=== PATIENT | male | born 1975 ===

== ENCOUNTER 2018-06-16 07:51 | Emergency (ER) | payer BC, OTHER ==
--- NOTE | 2018-06-16 08:28 | UC ---
Skin Complaint HPI - HPI Summary HPI Summary: 42 year old male with no PMH presents with deer tick bite x ~ 24 hours. no fever, chills. Attempted to remove, head remained. Body brought with paitent , not engorged. + deer tick. - History of Current Complaint Chief Complaint: [employer]kin Time Seen by Provider: 06/16/18 08:10 Stated Complaint: TICK Hx Obtained From: Patient Onset/Duration: Sudden Onset, Lasting Days, Still Present Onset Severity: Mild Current Severity: Mild Pain Intensity: 2 Pain Scale Used: 0-10 Numeric Location: Discrete - L upper inner thigh - Allergy/Home Medications Allergies/Adverse Reactions: Allergies Allergy/AdvReac Type Severity Reaction Status Date / Time environmental Allergy Congestion Uncoded 06/16/18 08:02 PMH/Surg Hx/FS Hx/Imm Hx Previously Healthy: Yes - Surgical History Surgical History: None - Social History Alcohol Use: Occasionally Substance Use Type: None Smoking Status (MU): Never Smoked Tobacco Review of Systems All Other Systems Reviewed And Are Negative: Yes Skin: Positive: Rash Is Patient Immunocompromised?: No Physical Exam Triage Information Reviewed: Yes Appearance: Well-Appearing, No Pain Distress, Well-Nourished Vital Signs: Initial Vital Signs Temp 98.6 F 06/16/18 07:59 Pulse 68 06/16/18 07:59 Resp 18 06/16/18 07:59 BP 146/94 06/16/18 07:59 Pulse Ox 98 06/16/18 07:59 Vital Signs Reviewed: Yes Eyes: Positive: Conjunctiva Clear Psychological Exam: Normal Skin: Positive: Other - left medial superior thigh with ~ 2cm red area with tick head, legs sticking out from side. minimal tender to touch. Attempted ot remove head, only partially able to be removed. Tolerated well by patient. Course/Dx - Course Course Of Treatment: Attempted tick removal, partially embedded. warm compresses, continue to monitor area, if increased redness, abx. No lyme prophylaxis due to length of time attached. - Diagnoses Provider Diagnosis: Tick bite Discharge - Sign-Out/Discharge Documenting (check all that apply): Patient Departure All imaging exams completed and their final reports reviewed: No Studies - Discharge Plan Condition: Good Disposition: HOME Prescriptions: Cephalexin CAP* [Keflex CAP*] 500 mg PO TID #21 cap Patient Education Materials: Lyme Disease (ED), Tick Bite (ED) Referrals: No Primary Care Phys,NOPCP [Primary Care Provider] - Additional Instructions: - Tick remover given to patient - Monitor area. If any redness, incrased pain over next 2-3 days, start antibiotics - Monitor for lyme disease, information given - Warm compresses to area - Billing Disposition and Condition Condition: GOOD Disposition: Home
== END 2018-06-16 08:39 | disposition home or self-care (01) ==
LOC: UCEAST 07:51
DX: S70.362A Insect bite (nonvenomous), left thigh, initial encounter (principal); W57.XXXA Bitten or stung by nonvenomous insect and other nonvenomous arthropods, initial encounter; Y92.9 Unspecified place or not applicable
CPT/HCPCS: 99202; G0463